=== PATIENT | male | born 1985 | race Hispanic/Latino ===

== ENCOUNTER 2017-01-28 14:46 | Emergency (ER) | payer MEDICAID ==
[2017-01-28 15:41] VITALS: BP 129/83
[2017-01-28] MEDS ORDERED: Benzocaine 20% Oral Spray 59.2 ML Canister MUCMEM ONE (15:45)
[2017-01-28] MEDS ORDERED: Lidocaine 2% Viscous Solution 15 ML Cup PO ONE (15:45)
--- NOTE | 2017-01-28 16:02 | EDM.PDOC ---
ED HPI ENT - General Chief Complaint: ENT Problem Stated Complaint: TOOTH PAIN [id number] Time Seen by Provider: 01/28/17 15:45 Source of Information: Reports: Patient History Limitations: Reports: No limitations - History of Present Illness INITIAL COMMENTS - FREE TEXT/NARRATIVE: patient complains of dental pain for many days duration. Complaining of facial swelling and tenderness. Patient has not seen a dentist yet. Denies ear pain. Denies pain in the TMJ. Has not noticed fever or chills. No difficulty with swallowing. Timing/Duration: Reports: Day(s): Severity: moderate Location: Reports: mouth - Related Data Allergies/ADRs: Allergies Allergy/AdvReac Type Severity Reaction Status Date / Time No Known Allergies Allergy Verified 01/28/17 15:36 Home Meds: Home Meds . [No Known Home Meds] 01/28/17 [History] Past Medical History Cardiovascular History: Reports: Hypertension Musculoskeletal History: Reports: Back pain, chronic Social & Family History - Family History Family Medical History: Noncontributory - Tobacco Use Smoking Status *Q: Current Every Day Smoker Years of Tobacco use: 15 Packs/Tins Daily: 0.5 Used Tobacco, but Quit: No Second Hand Smoke Exposure: No - Alcohol Use Number of Drinks Per Day: 8 - Recreational Drug Use Recreational Drug Use: No Drug Use in Last 12 Months: Yes Recreational Drug Type: Reports: Marijuana/Hashish Recreational Drug Use Frequency: Socially ED ROS ENT - Review of Systems Review Of Systems: See Below Constitutional: Reports: chills HEENT: Reports: Dental pain Respiratory: Reports: No Symptoms Cardiovascular: Reports: No symptoms Endocrine: Reports: no symptoms GI/Abdominal: Reports: No symptoms : Reports: no symptoms Musculoskeletal: Reports: no symptoms Skin: Reports: no symptoms Neurological: Reports: No Symptoms ED EXAM, ENT - Physical Exam Exam: See Below Exam Limited By: No limitations General Appearance: alert, WD/WN, no apparent distress Ears: normal TMs Nose: normal inspection, normal mucousa Mouth/Throat: Normal lips, Normal oropharynx, Dental abcess, Dental pain, Dental tenderness, Other (upper left maxillary swelling. Tenderness of the tooth #15. There is no obvious drainage or erythema.) Head: atraumatic, normocephalic Neck: supple, non-tender Respiratory/Chest: no respiratory distress Neurological: alert, oriented, CN II-XII intact Course - Vital Signs Last Recorded V/S: Last Vital Signs Temp 98.6 F 01/28/17 15:38 Pulse 97 01/28/17 15:38 Resp 20 01/28/17 15:38 BP 129/83 01/28/17 15:38 Pulse Ox 99 01/28/17 15:38 - Orders/Labs/Meds Meds: Medications Discontinued Medications Generic Name Dose Route Start Last Admin Trade Name Aisha PRN Reason Stop Dose Admin Benzocaine 10 ml 01/28/17 15:45 01/28/17 15:55 Hurricaine 20% Clinton MUCMEM 01/28/17 15:46 10 ml ONETIME ONE Administration Lidocaine HCl 15 ml 01/28/17 15:45 01/28/17 15:56 Xylocaine 2% Viscous PO 01/28/17 15:46 15 ml ONETIME ONE Administration Departure - Departure Time of Disposition: 15:59 Disposition: Home, Self-Care 01 Condition: good Clinical Impression: Dental abscess Fracture of tooth Qualifiers: Encounter type: initial encounter Fracture type: closed Qualified Code(s): S02.5XXA - Fracture of tooth (traumatic), initial encounter for closed fracture Forms: ED Department Discharge Additional Instructions: take medication as directed. Call dentist on Monday to arrange appointment. Apply ice multiple times a day to help with pain. Consume a mechanical soft diet. call or return if any problems questions or concerns
== END 2017-01-28 16:06 | disposition home or self-care (01) ==
LOC: DL.ED 14:46
DX: S02.5XXA Fracture of tooth (traumatic), initial encounter for closed fracture (principal); K04.7 Periapical abscess without sinus; I10 Essential (primary) hypertension; F17.210 Nicotine dependence, cigarettes, uncomplicated
CPT/HCPCS: 99283; A9270

== ENCOUNTER 2017-09-22 20:14 | Emergency (ER) | payer MEDICAID ==
[2017-09-22 20:24] VITALS: BP 116/54
== END 2017-09-22 22:23 | disposition left against medical advice (07) ==
LOC: DL.ED 20:14
DX: Z53.21 Procedure and treatment not carried out due to patient leaving prior to being seen by health care provider (principal)
CPT/HCPCS: 73560-LT; 99283

== ENCOUNTER 2019-10-05 23:00 | Emergency (ER) | payer MEDICAID, OTHER ==
[2019-10-05 23:11] VITALS: BP 137/98; PULSE 86
--- NOTE | 2019-10-05 23:20 | EDM.PDOC ---
ED HPI GENERAL MEDICAL PROBLEM - General Chief Complaint: Abdominal Pain Stated Complaint: RIGHT SIDE STOMACH PAIN Time Seen by Provider: 10/05/19 23:17 Source of Information: Reports: Patient History Limitations: Reports: No Limitations - History of Present Illness INITIAL COMMENTS - FREE TEXT/NARRATIVE: onset RLQ pain tonight with nausea no vomiting. Right Lower Abdomen Pain Score (Numeric/FACES): 6 - Related Data Allergies Allergy/AdvReac Type Severity Reaction Status Date / Time No Known Allergies Allergy Verified 10/05/19 23:04 Home Meds: Home Meds . [No Known Home Meds] 01/28/17 [History] Past Medical History - Past Health History Medical/Surgical History: Denies Medical/Surgical History Cardiovascular History: Reports: Hypertension Musculoskeletal History: Reports: Back Pain, Chronic Social & Family History - Family History Family Medical History: Noncontributory - Tobacco Use Smoking Status *Q: Current Every Day Smoker Years of Tobacco use: 15 Packs/Tins Daily: 0.2 - Caffeine Use Caffeine Use: Reports: Soda - Recreational Drug Use Recreational Drug Use: Yes Recreational Drug Type: Reports: Marijuana/Hashish ED ROS GENERAL - Review of Systems Review Of Systems: Comprehensive ROS is negative, except as noted in HPI. ED EXAM, GI/ABD - Physical Exam Exam: See Below Exam Limited By: No Limitations General Appearance: Alert, WD/WN, Mild Distress, Other (discomfort). No: Active Emesis Ears: Hearing Grossly Normal Throat/Mouth: Normal Voice, No Airway Compromise Head: Atraumatic Neck: Non-Tender, Full Range of Motion Respiratory/Chest: No Respiratory Distress Cardiovascular: Regular Rate, Rhythm GI/Abdominal Exam: Guarding, Rebound, Tender, Other (RLQ). No: Distended, Rigid Neurological: Alert, Oriented, Normal Cognition, Normal Gait, No Motor/Sensory Deficits Psychiatric: Flat Affect, Tearful Skin Exam: Warm, Dry, Normal Color Lymphatic: No Adenopathy Course - Vital Signs Last Recorded V/S: Last Vital Signs Temp 35.9 C 10/05/19 23:06 Pulse 86 10/05/19 23:06 Resp 16 10/05/19 23:06 BP 137/98 H 10/05/19 23:06 Pulse Ox 100 10/05/19 23:06 - Orders/Labs/Meds Labs: Laboratory Tests 10/05/19 10/05/19 10/05/19 Range/Units 23:10 23:10 23:10 WBC 13.0 H (5.0-10.0) 10^3/uL RBC 6.50 H (4.6-6.2) 10^6/uL Hgb 18.9 H D (14.0-18.0) g/dL Hct 54.3 H (40.0-54.0) % MCV 83.5 D (80-100) fL MCH 29.1 (27.0-34.0) pg MCHC 34.8 (33.0-35.0) g/dL Plt Count 243 (150-450) 10^3/uL Neut % (Auto) 67.9 (42.2-75.2) % Lymph % (Auto) 23.8 (20.5-50.1) % Norman % (Auto) 5.8 (2-8) % Eos % (Auto) 2.1 (1.0-3.0) % Baso % (Auto) 0.4 (0.0-1.0) % Sodium 138 (135-145) mmol/L Potassium 4.1 (3.6-5.0) mmol/L Chloride 101 (101-111) mmol/L Carbon Dioxide 23.0 (21.0-31.0) mmol/L Anion Gap 18.1 BUN 15 (7-18) mg/dL Creatinine 0.8 (0.6-1.3) mg/dL Est Cr Clr Drug Dosing 127.65 mL/min Estimated GFR (MDRD) > 60 BUN/Creatinine Ratio 18.75 Glucose 115 H (74-105) mg/dL Lactic Acid 1.5 (0.5-2.2) mmol/L Calcium 10.4 H D (8.4-10.2) mg/dl Total Bilirubin 0.6 (0.2-1.0) mg/dL AST 27 (10-42) IU/L ALT 37 (10-60) IU/L Alkaline Phosphatase 118 (42-121) IU/L Total Protein 9.0 H (6.7-8.2) g/dl Albumin 5.2 (3.2-5.5) g/dl Globulin 3.8 Albumin/Globulin Ratio 1.37 Amylase 77 (28-100) U/L Lipase 40 (22-51) U/L Urine Color (YELLOW) Urine Appearance (CLEAR) Urine pH (5.0-9.0) Ur Specific Hudson (1.005-1.030) Urine Protein (NEGATIVE) Urine Glucose (UA) (NEGATIVE) Urine Ketones (NEGATIVE) Urine Occult Blood (NEGATIVE) Urine Nitrite (NEGATIVE) Urine Bilirubin (NEGATIVE) Urine Urobilinogen (0.2-1.0) mg/dL Ur Leukocyte Esterase (NEGATIVE) Urine RBC /HPF Urine WBC (0-5/HPF) /HPF Ur Epithelial Cells (NOT SEEN) /HPF Urine Bacteria (0-FEW/HPF) /HPF Urine Mucus (NOT SEEN) /LPF Urine Opiates Screen (NEGATIVE) Ur Oxycodone Screen (NEGATIVE) Urine Methadone Screen (NEGATIVE) Ur Barbiturates Screen (NEGATIVE) U Tricyclic Antidepress (NEGATIVE) Ur Phencyclidine Scrn (NEGATIVE) Ur Amphetamine Screen (NEGATIVE) U Methamphetamines Scrn (NEGATIVE) Urine MDMA Screen (NEGATIVE) U Benzodiazepines Scrn (NEGATIVE) Urine Cocaine Screen (NEGATIVE) U Marijuana (THC) Screen (NEGATIVE) Ethyl Alcohol < 5 mg/dL 10/05/19 10/05/19 Range/Units 23:47 23:47 WBC (5.0-10.0) 10^3/uL RBC (4.6-6.2) 10^6/uL Hgb (14.0-18.0) g/dL Hct (40.0-54.0) % MCV (80-100) fL MCH (27.0-34.0) pg MCHC (33.0-35.0) g/dL Plt Count (150-450) 10^3/uL Neut % (Auto) (42.2-75.2) % Lymph % (Auto) (20.5-50.1) % Norman % (Auto) (2-8) % Eos % (Auto) (1.0-3.0) % Baso % (Auto) (0.0-1.0) % Sodium (135-145) mmol/L Potassium (3.6-5.0) mmol/L Chloride (101-111) mmol/L Carbon Dioxide (21.0-31.0) mmol/L Anion Gap BUN (7-18) mg/dL Creatinine (0.6-1.3) mg/dL Est Cr Clr Drug Dosing mL/min Estimated GFR (MDRD) BUN/Creatinine Ratio Glucose (74-105) mg/dL Lactic Acid (0.5-2.2) mmol/L Calcium (8.4-10.2) mg/dl Total Bilirubin (0.2-1.0) mg/dL AST (10-42) IU/L ALT (10-60) IU/L Alkaline Phosphatase (42-121) IU/L Total Protein (6.7-8.2) g/dl Albumin (3.2-5.5) g/dl Globulin Albumin/Globulin Ratio Amylase (28-100) U/L Lipase (22-51) U/L Urine Color Yellow (YELLOW) Urine Appearance Slightly cloudy (CLEAR) Urine pH 5.5 (5.0-9.0) Ur Specific Hudson >= 1.030 (1.005-1.030) Urine Protein 30 H (NEGATIVE) Urine Glucose (UA) Negative (NEGATIVE) Urine Ketones Trace H (NEGATIVE) Urine Occult Blood Negative (NEGATIVE) Urine Nitrite Negative (NEGATIVE) Urine Bilirubin Small H (NEGATIVE) Urine Urobilinogen 0.2 (0.2-1.0) mg/dL Ur Leukocyte Esterase Negative (NEGATIVE) Urine RBC 0-5 /HPF Urine WBC 5-10 H (0-5/HPF) /HPF Ur Epithelial Cells Moderate H (NOT SEEN) /HPF Urine Bacteria Many H (0-FEW/HPF) /HPF Urine Mucus Moderate H (NOT SEEN) /LPF Urine Opiates Screen Negative (NEGATIVE) Ur Oxycodone Screen Negative (NEGATIVE) Urine Methadone Screen Negative (NEGATIVE) Ur Barbiturates Screen Negative (NEGATIVE) U Tricyclic Antidepress Negative (NEGATIVE) Ur Phencyclidine Scrn Negative (NEGATIVE) Ur Amphetamine Screen Positive H (NEGATIVE) U Methamphetamines Scrn Positive H (NEGATIVE) Urine MDMA Screen Positive H (NEGATIVE) U Benzodiazepines Scrn Negative (NEGATIVE) Urine Cocaine Screen Negative (NEGATIVE) U Marijuana (THC) Screen Positive H (NEGATIVE) Ethyl Alcohol mg/dL Meds: Medications Discontinued Medications Generic Name Dose Route Start Last Admin Trade Name Freq PRN Reason Stop Dose Admin Dicyclomine HCl 20 mg 10/06/19 00:44 10/06/19 00:52 Bentyl IM 10/06/19 00:45 20 mg ONETIME ONE Administration Iopamidol 100 ml 10/05/19 23:26 10/06/19 00:50 Isovue-300 (61%) IVPUSH 10/05/19 23:27 100 ml ONETIME ONE Administration - Re-Assessments/Exams Free Text/Narrative Re-Assessment/Exam: 10/06/19 00:45 results discussed with pt. Departure - Departure Time of Disposition: 01:07 Disposition: Home, Self-Care 01 Condition: Good Clinical Impression: Methamphetamine abuse Abdominal pain Qualifiers: Abdominal location: periumbilical Qualified Code(s): R10.33 - Periumbilical pain - Discharge Information Instructions: Abdominal Pain, Adult, [id number] Referrals: PCP,Unobtain [Primary Care Provider] - Forms: ED Department Discharge Additional Instructions: 1) no solid foods next 3 to 4 days 2) liquid diet 3) avoid drugs 4) follow up at clinic rx given; bentyl 10mg bid prn abd pain x12 Sepsis Event Note - Evaluation Sepsis Screening Result: No Definite Risk - Focused Exam Date Exam was Performed: 10/06/19 Time Exam was Performed: 19:13
[2019-10-05] MEDS ORDERED: Iopamidol 612 MG/ML 100 ML Bottle IVPUSH ONE (23:26)
[2019-10-05 23:44] LABS: ANION GAP 18.1; CHLORIDE,CL 101 mmol/L (101-111); SODIUM,NA 138 mmol/L (135-145)
[2019-10-06] MEDS ORDERED: Dicyclomine 20 MG/2 ML SDV IM ONE (00:44)
== END 2019-10-06 01:07 | disposition home or self-care (01) ==
LOC: DL.ED 23:00
DX: F15.10 Other stimulant abuse, uncomplicated (principal); R10.33 Periumbilical pain; I10 Essential (primary) hypertension; M54.9 Dorsalgia, unspecified; G89.29 Other chronic pain; F17.210 Nicotine dependence, cigarettes, uncomplicated
CPT/HCPCS: 36415; 74177; 80053; 80305; 80320; 81001; 82150; 83605; 83690; 85025; 96372; 99284; J0500; Q9967; 99283; G0480

== ENCOUNTER 2024-05-24 22:41 | Emergency (ER) | payer SELFPAY | END 2024-05-25 00:22 | disposition left against medical advice (07) | LOC: DL.ED 22:41 | DX: Z53.21 Procedure and treatment not carried out due to patient leaving prior to being seen by health care provider (principal) ==

== ENCOUNTER 2024-05-25 18:50 | Emergency (ER) | payer OTHER ==
[2024-05-25] MEDS: Ketorolac 30 MG/ML SDV IM ONE (21:13)
[2024-05-25 21:15] VITALS: BP 131/78; PULSE 80
[2024-05-25] MEDS: Take Home: Cyclobenzaprine 10 MG Tab, 4 Tab Pack PO ONE (21:51)
== END 2024-05-25 21:56 | disposition home or self-care (01) ==
LOC: DL.ED 18:50
DX: S86.912A Strain of unspecified muscle(s) and tendon(s) at lower leg level, left leg, initial encounter (principal); I10 Essential (primary) hypertension; F17.210 Nicotine dependence, cigarettes, uncomplicated; Z79.899 Other long term (current) drug therapy; X50.1XXA Overexertion from prolonged static or awkward postures, initial encounter; Y93.67 Activity, basketball
CPT/HCPCS: 73590; 96372; 99283; A9270; J1885